=== PATIENT | male | born 1980 | race Caucasian/White ===

== ENCOUNTER 2016-10-19 09:34 | Emergency (ER) | payer BC ==
[2016-10-19 10:23] VITALS: BP 127/73
--- NOTE | 2016-10-19 12:23 | UC ---
Abdominal Pain Male HPI - HPI Summary HPI Summary: 2-4 watery stool daily for the past 5-7 days unsure about fever no recent antibiotics no travel, no illness exposure - History of Current Complaint Chief Complaint: UCGI Stated Complaint: STOMACH CRAMPS Time Seen by Provider: 10/19/16 12:10 Hx Obtained From: Patient Onset/Duration: Sudden Onset, Lasting Days - 5, Still Present, Worse Since - cramps and pain getting worse after taking Immodium yesterday Timing: Constant Severity Initially: Moderate Severity Currently: Moderate Pain Intensity: 6 Pain Scale Used: 0-10 Numeric Location: Discrete At: RLQ, Discrete At: LLQ Radiates: No Character: Cramping Alleviating Factor(s): Nothing Associated Signs And Symptoms: Positive: Diarrhea - Allergies/Home Medications Allergies/Adverse Reactions: Allergies Allergy/AdvReac Type Severity Reaction Status Date / Time No Known Allergies Allergy Verified 10/19/16 13:05 Home Medications: Home Medications Loperamide HCl [Imodium A-D] 2 mg PO 10/19/16 [History] PMH/Surg Hx/FS Hx/Imm Hx Previously Healthy: No Endocrine History Of: Denies: Diabetes, Thyroid Disease, Hyperthyroidism, Hypothyroidism, Dyslipidemia Cardiovascular History Of: Denies: Cardiac Disorders, Hypertension, Pacemaker/ICD, Myocardial Infarction , Congestive Heart Failure, Atrial Fibrillation, Deep Vein Thrombosis, Bleeding Disorders Respiratory History Of: Denies: COPD, Asthma, Bronchitis, Pneumonia, Pulmonary Embolism GI/ History Of: Reports: Gastroesophageal Reflux Denies: Ulcer, Gastrointestinal Bleed, Gall Bladder Disease, Kidney Stones, Diverticulitis, Renal Disease, Urosepsis Neurological History Of: Denies: TIA, CVA, Dementia, Seizures, Migraine Psychological History Of: Denies: Anxiety, Depression, Bipolar Disorder, Schizophrenia, Post Traumatic Stress Disorder Cancer History Of: Denies: Lung Cancer, Colorectal Cancer, Breast Cancer, Prostate Cancer, Cervical Cancer Other History Of: Negative For: HIV, Hepatitis B, Hepatitis C, Anticoagulant Therapy - Surgical History Surgical History: None - Family History Known Family History: Positive: Cardiac Disease, Diabetes Negative: Hypertension - Social History Occupation: Employed Full-time Lives: With Family Alcohol Use: Occasionally Substance Use Type: None Smoking Status (MU): Heavy Every Day Tobacco Smoker Type: Cigars Amount Used/How Often: 5-6 cigars/day Household Exposure Type: Cigars - Immunization History Most Recent Influenza Vaccination: Unknown Review of Systems Constitutional: Chills, Fatigue Skin: Negative Eyes: Negative ENT: Negative Respiratory: Negative Cardiovascular: Negative Gastrointestinal: Abdominal Pain, Diarrhea Genitourinary: Negative Motor: Negative Neurovascular: Negative Musculoskeletal: Negative Neurological: Negative Psychological: Negative All Other Systems Reviewed And Are Negative: Yes Physical Exam Triage Information Reviewed: Yes Appearance: Well-Nourished, Ill-Appearing - mild, Pain Distress - mild Vital Signs: Initial Vital Signs Temp 98.5 F 10/19/16 10:20 Pulse 83 10/19/16 10:20 Resp 18 10/19/16 10:20 BP 127/73 10/19/16 10:20 Pulse Ox 99 10/19/16 10:20 Vital Signs Reviewed: Yes Eye Exam: Normal Eyes: Positive: Conjunctiva Clear ENT Exam: Normal ENT: Positive: Normal ENT inspection, Hearing grossly normal, Pharynx normal, TMs normal. Negative: Nasal congestion, Nasal drainage, Tonsillar swelling, Tonsillar exudate, Trismus, Muffled/hoarse voice Neck exam: Normal Neck: Positive: Supple, Nontender, No Lymphadenopathy Respiratory Exam: Normal Respiratory: Positive: Chest non-tender, Lungs clear, Normal breath sounds, No respiratory distress, No accessory muscle use, Respiratory distress Cardiovascular Exam: Normal Cardiovascular: Positive: RRR, No Murmur, Pulses Normal, Brisk Capillary Refill Abdominal Exam: Other Abdomen Description: Positive: No Organomegaly, Soft, Other: - r>L lq pain Bowel Sounds: Positive: Present Musculoskeletal Exam: Normal Musculoskeletal: Positive: Strength Intact, ROM Intact, No Edema Neurological Exam: Normal Neurological: Positive: Alert, Muscle Tone Normal Psychological Exam: Normal Skin Exam: Normal Abd Pain Male Course/Dx - Course Course Of Treatment: npo, [place] [facility] [place] - Differential Dx/Clinical Impression Differential Diagnosis/HQI/PQRI: Appendicitis, Bowel Obstruction, Diverticulitis , Ischemic Bowel Provider Diagnoses: Abdomen pain, acute diarrhea Discharge - Discharge Plan Condition: Stable Disposition: [facility] Referrals: Matt Rebolledo [employer] [Primary Care Provider] -
== END 2016-10-19 12:30 | disposition short-term general hospital (02) ==
LOC: UCEAST 09:34
DX: R10.31 Right lower quadrant pain (principal); R10.32 Left lower quadrant pain; R19.7 Diarrhea, unspecified; F17.210 Nicotine dependence, cigarettes, uncomplicated
CPT/HCPCS: 81002; 99212; G0463

== ENCOUNTER 2016-10-19 12:51 | Emergency (ER) | payer BC ==
[2016-10-19 13:08] VITALS: BP 139/78
== END 2016-10-19 13:45 | disposition left against medical advice (07) ==
LOC: ED 12:51
DX: R19.7 Diarrhea, unspecified (principal)

== ENCOUNTER 2018-09-24 07:31 | Emergency (ER) | payer BC ==
[2018-09-24] MEDS ORDERED: Al Hydrox/Mg Hydrox/Simet LIQ* 30 ML UDC PO ONE (08:18)
[2018-09-24] MEDS ORDERED: Famotidine IV* 10 MG/ML 2 ML (20 mg) IV SLOW PU ONE (08:18)
--- NOTE | 2018-09-24 08:24 | ED ---
Abdominal Pain/Male - HPI Summary HPI Summary: 38YO M with history of chronic esophageal reflux presents with worsening symptoms over the past few weeks. Patient states his symptoms have been worsening with eating, lying down, and acidic drinks/foods. Patient is not on any daily control medications for acid reflux but took one zantac last night and reported some relief. Patient denies any current pain but states he is experiencing some discomfort in his chest and epigastric region. Denies SOB, diaphoresis, fevers, changes in urination, constipation, and blood in stool. Endorses nausea, diarrhea, and one episode of vomiting 3 days ago. Patient states he has not had any surgeries, and is not diagnosed with any chronic medical illnesses. Patient does not take nay daily medications. - History of Current Complaint Chief Complaint: EDAbdPain Stated Complaint: ABD PAIN Time Seen by Provider: 09/24/18 07:58 Hx Obtained From: Patient Onset/Duration: Gradual Onset, Lasting Weeks Timing: Intermittent Severity Initially: Severe Severity Currently: Mild Pain Intensity: 3 Pain Scale Used: 0-10 Numeric Location: Epigastric Radiates: Yes Radiates to: Chest Character: Burning Aggravating Factor(s): Food, Other: - lying down Alleviating Factor(s): Position, Antacids Associated Signs And Symptoms: Positive: Chest Pain, Decreased Appetite, Nausea - Risk Factors Cardiac Risk Factors: Smoking - Allergies/Home Medications Allergies/Adverse Reactions: Allergies Allergy/AdvReac Type Severity Reaction Status Date / Time bee venom protein (honey bee) Allergy Anaphylatic Verified 09/24/18 08:08 Shock PMH/Surg Hx/FS Hx/Imm Hx Endocrine/Hematology History: Denies: Hx Anticoagulant Therapy, Hx Diabetes, Hx Thyroid Disease Cardiovascular History: Denies: Hx Congestive Heart Failure, Hx Deep Vein Thrombosis, Hx Hypertension , Hx Myocardial Infarction, Hx Pacemaker/ICD Respiratory History: Denies: Hx Asthma, Hx Chronic Obstructive Pulmonary Disease (COPD), Hx Lung Cancer, Hx Pneumonia, Hx Pulmonary Embolism GI History: Reports: Hx Gastroesophageal Reflux Disease Denies: Hx Gall Bladder Disease, Hx Gastrointestinal Bleed, Hx Ulcer, Hx Urosepsis History: Denies: Hx Kidney Stones, Hx Renal Disease Neurological History: Denies: Hx Dementia, Hx Migraine, Hx Seizures, Hx Transient Ischemic Attacks (TIA) Psychiatric History: Denies: Hx Anxiety, Hx Depression, Hx Schizophrenia, Hx Bipolar Disorder Infectious Disease History: No Infectious Disease History: Denies: Traveled Outside the [place] in Last 30 Days - Family History Known Family History: Positive: Cardiac Disease, Diabetes Negative: Hypertension - Social History Alcohol Use: Occasionally Substance Use Type: Reports: None Smoking Status (MU): Heavy Every Day Tobacco Smoker Type: Cigars Amount Used/How Often: 5-6 cigars/day Review of Systems Negative: Fever, Chills, Fatigue Negative: Sore Throat, Ear Ache, Nasal Discharge Positive: Chest Pain - "discomfort, feels like reflux" Negative: Shortness Of Breath Positive: Abdominal Pain, Vomiting, Nausea. Negative: Diarrhea Negative: burning, dysuria, hematuria Negative: Rash Negative: Headache, Weakness, Numbness All Other Systems Reviewed And Are Negative: Yes Physical Exam Triage Information Reviewed: Yes Vital Signs On Initial Exam: Initial Vitals Temp Pulse Resp BP Pulse Ox 98.1 F 85 18 134/81 98 09/24/18 07:42 09/24/18 07:42 09/24/18 07:42 09/24/18 07:42 09/24/18 07:42 Vital Signs Reviewed: Yes Appearance: Positive: Well-Appearing, No Pain Distress, Well-Nourished Skin: Positive: Warm, Skin Color Reflects Adequate Perfusion Head/Face: Positive: Normal Head/Face Inspection Eyes: Positive: Normal, EOMI, ASIA ENT: Positive: Pharynx normal. Negative: Nasal congestion Neck: Positive: Supple, Nontender Respiratory/Lung Sounds: Positive: Clear to Auscultation, Breath Sounds Present Cardiovascular: Positive: Normal, RRR Abdomen Description: Positive: Nontender, No Organomegaly, Soft Bowel Sounds: Positive: Present Musculoskeletal: Positive: Normal Neurological: Positive: Normal Psychiatric: Positive: Normal AVPU Assessment: Alert Diagnostics - Vital Signs Vital Signs Temp Pulse Resp BP Pulse Ox 09/24/18 07:42 98.1 F 85 18 134/81 98 - Laboratory Result Diagrams: 09/24/18 08:29 09/24/18 08:29 Lab Statement: Any lab studies that have been ordered have been reviewed, and results considered in the medical decision making process. Abdominal Pain Fem Course/Dx - Course Course Of Treatment: 38YO male with chronic esophageal reflux presents with worsening symptoms. Patient states he is unable to eat without causing significant pain. Patient is not on any control medications but felt relief with one zantac yesterday. Physical exam was unremarkable. Patient given IV Pepcid and PO maalox for symptom relief. EKG, CBC, troponin I, lipase, and CMP ordered. Labs all WNL including a troponin. Patient feels improved after medications are dispensed. Medications given her Maalox and Pepcid IV in the ED. Patient admits to using copious amounts of ibuprofen, eating directly before bed, lying flat immediately after eating and significant smoking history. Given omeprazole and Maalox plus prescriptions. Patient will follow- up with GI. - Diagnoses Differential Diagnosis/HQI/PQRI: Pancreatitis, Peptic Ulcer Disease, Other - GERD, [place], peptic ulcer, duodenal ulcer Provider Diagnoses: GERD (gastroesophageal reflux disease) Discharge - Sign-Out/Discharge Documenting (check all that apply): Patient Departure - Discharge Plan Condition: Stable Disposition: HOME Prescriptions: Al Hydrox/Mg Hydrox/Simet LIQ* [Maalox Plus*] 30 ml PO Q4H PRN #1 bottle PRN Reason: Pain Omeprazole 40 mg PO DAILY #60 capsule. Patient Education Materials: Gastritis (ED), Gastroesophageal Reflux Disease ( ED) Referrals: Claus Lizama MD [Medical Doctor] - Matt Reboleldo NP [Primary Care Provider] - Additional Instructions: Please follow up with GI Omeprazole once daily in the morning Maalox up to every 4 hours as needed for breakthrough GERD symptoms - Billing Disposition and Condition Condition: STABLE Disposition: Home
[2018-09-24 08:50] LABS: ABS Basophils 0 10^3/ul (0-0.2); ABS Eosinophils 0.2 10^3/ul (0-0.6); ABS Lymphocytes 1.9 10^3/ul (1.0-4.8); ABS Monocytes 0.6 10^3/ul (0-0.8); ABS Neutrophils 3.4 10^3/ul (1.5-7.7); ABS Nucleated RBC 0 10^3/ul; Hematocrit 45 % (42-52); Mean Corpuscular HGB Conc 33 g/dl (31-36); Mean Corpuscular Hemoglobin 29 pg (27-31); Mean Corpuscular Volume 87 fL (80-94); Mean Platelet Volume 7.7 fL (7.4-10.4); Nucleated Red Blood Cells % 0.1; Platelet Count 237 10^3/ul (150-450); Red Blood Count 5.16 10^6/ul (4.00-5.40); Red Cell Distribution Width 15 % (10.5-15); White Blood Count 6.1 10^3/ul (3.5-10.8)
[2018-09-24 09:18] LABS: EGFR Non-African American 114.3 (>60)
[2018-09-24 09:45] VITALS: BP 132/77
== END 2018-09-24 09:52 | disposition home or self-care (01) ==
LOC: ED 07:31
DX: K21.9 Gastro-esophageal reflux disease without esophagitis (principal); Z91.030 Bee allergy status; F17.290 Nicotine dependence, other tobacco product, uncomplicated
CPT/HCPCS: 36415; 80053; 83690; 84484; 85025; 93005; 96374; 99283; A9270-GY